=== PATIENT | female | born 1965 | race Caucasian/White ===

== ENCOUNTER 2025-06-19 19:12 | Emergency (ER) | payer OTHER, SELFPAY ==
[2025-06-19 19:12] VITALS: BP 206/115; PULSE 68; RESP 16; O2SAT 96; BMI 36.6
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
--- OUTSIDE RECORDS SUMMARY | 2025-06-19 19:24 | XMS_ITS | Data Portability ---
Author Organization [facility], [facility] Address [address] [place] [address] Assessment No assessment recorded. Plan of Treatment Reminders Order Date Submit Date Provider Last Modified By Organization Details Last Modified Time Details Appointments None recorded. Lab rapid flu (A+B), PCR 2018 019 Not available 9 13:22:16 CBC w/ diff 2018 019 [email or web address] Not available 9 13:22:16 CMP, serum or plasma - cpt 28863 2017 018 [facility], [address] [place], [address], 8 09:51:23 urinalysis , microscopi c 2017 018 [email or web address] Not available 8 12:45:10 TSH, serum or plasma - cpt 29825 2017 018 [facility], [address] [address] [facility] [place], [address], 8 09:51:31 lipid panel, serum 2017 018 [facility], [address] [facility] [place], [address], 8 09:51:19 CBC w/ auto diff - cpt 36090 2017 018 [facility], [address] [facility] [place], [address], 8 09:51:27 pap, LB 2017 018 [email or web address] [facility] [place] [facility], [address] [address] [facility] [place], [address], 8 15:05:59 Referral colonoscop y referral 2018 019 [email or web address] [facility] [address] [place], [address], 9 09:25:22 Procedures None recorded. Surgeries None recorded. Imaging XR, ribs, unilateral , 2 view 2018 019 [facility], [facility], [address], [place], [address], 9 00:14:49 MAMMO, screening, digital, bilateral 2017 018 [email or web address] Not available 8 14:08:42 Medication Orders trazodone 50 mg tablet 2019 020 INTERFACE [facility]1839, [address] [place], [id number], 0 16:18:21 lisinopril 40 mg tablet 2019 020 INTERFACE [facility]72726, [address] [place], [id number], 0 16:18:22 metoprolol tartrate 50 mg tablet 2019 020 INTERFACE [facility]81440, [address] [place], [id number], 0 16:18:24 clonidine HCl 0.1 mg tablet 2019 020 INTERFACE [facility] #94832, [address], [place], [place], [id number], 0 16:18:20 hydroxyzin e HCl 25 mg tablet [address] [facility]43815, [address], [place], [place], [id number], 0 16:05:54 venlafaxin e ER 150 mg capsule,ex tended release 24 hr [address] [facility]35340, [address], [place], [place], [id number], 0 16:05:59 lisinopril 40 mg tablet [address] [facility]14535, [facility] [address], [place], [place], [id number], 0 16:05:56 lisinopril 20 mg-hydroch lorothiazi de 12.5 mg tablet [address] [facility]68094, [address], [place], [place], [id number], 9 10:02:44 clonidine HCl 0.1 mg tablet [address] [facility]61955, [address], [place], [place], [id number], 9 10:03:00 Levaquin 500 mg tablet [address] [facility]30953, [address], [place], [place], [id number], 9 13:59:46 Kenalog 40 mg/mL suspension for injection 2018 019 [email or web address]22011, [address], [place], [place], [id number], 9 13:59:44 Patient TargetsNo targets recorded. Patient Instructions Encounter Date Encounter Id Patient Instructions Last Modified By Organization Details Last Modified Time 07/05/2018 [id number] patient declines colonoscopy scheduled for mammogram [email or web address] Not available 07/05/2018 12:44:41 08/25/2018 [id number] return to clinic if symptoms do not improve with treatment return to ER if symptoms worsen over the weekend Not available 08/25/2018 10:57:57 12/29/2018 [id number] and continue to monitor blood pressure Return to clinic if symptomsof chest discomfort do not resolve [email or web address] Not available 12/29/2018 14:45:24 02/27/2019 [id number] patient will return to clinic in one month for followup on her panic disorder and hypertension. Return to clinic sooner as needed [email or web address] Not available 02/27/2019 10:43:27 02/28/2020 [id number] return to clinic in 2 weeks for followup on her blood pressure. She will monitor her blood pressure closely [email or web address] Not available 02/28/2020 16:18:27 Reason for Referral [facility] Referring Physician: Lashay Grover, Internal Medicine, Encounter Date: 02/27/2019 Results Created Date Observation Date Name Description Value Unit Range Abnormal Flag Note LastModifiedBy Organization Detail LastModifiedTime 06/09/20 18 06/09/2018 CBC w/ diff WBC 7.9 10^3/ uL 4.1-10 .9 Not Available [address], [address], 06/09/2018 09:09:34 06/09/20 18 06/09/2018 CBC w/ diff lym 1.4 10^3/ uL 0.6-4. 1 Not Available [address], [address], 06/09/2018 09:09:34 06/09/20 18 06/09/2018 CBC w/ diff mid 0.6 10^3/ uL 0.0-1. 8 Not Available [address], [address], 06/09/2018 09:09:34 06/09/20 18 06/09/2018 CBC w/ diff gra 5.9 10^3/ uL 2.0-7. 8 Not Available [address], [address], 06/09/2018 09:09:34 06/09/20 18 06/09/2018 CBC w/ diff lym% 18.1 % 10.0-5 8.5 Not Available [address], [address], 06/09/2018 09:09:34 06/09/20 18 06/09/2018 CBC w/ diff mid% 7.5 % 0.1-24 .0 Not Available [address], [address], 06/09/2018 09:09:34 06/09/20 18 06/09/2018 CBC w/ diff gra% 74.4 % 37.0-9 2.0 Not Available [address], [address], 06/09/2018 09:09:34 06/09/20 18 06/09/2018 CBC w/ diff RBC 4.01 10^6/ uL 2.50-6 .30 Not Available [address], [address], 06/09/2018 09:09:34 06/09/20 18 06/09/2018 CBC w/ diff HGB 12.0 g/dL 12.0-1 8.0 Not Available [address], [address], 06/09/2018 09:09:34 06/09/20 18 06/09/2018 CBC w/ diff HCT 36.9 % 33.0-5 1.0 Not Available [address], [address], 06/09/2018 09:09:34 06/09/20 18 06/09/2018 CBC w/ diff MCV 91.9 fL 85.7-9 8.7 Not Available [address], [address], 06/09/2018 09:09:34 06/09/20 18 06/09/2018 CBC w/ diff MCH 29.9 pg 28.5-3 4.5 Not Available [address], [address], 06/09/2018 09:09:34 06/09/20 18 06/09/2018 CBC w/ diff MCHC 32.5 g/dL 31.0-3 6.0 Not Available [address], [address], 06/09/2018 09:09:34 06/09/20 18 06/09/2018 CBC w/ diff RDW 12.4 % 11.5-1 7.0 Not Available [address], [address], 06/09/2018 09:09:34 06/09/20 18 06/09/2018 CBC w/ diff plt 199 10^3/ uL 140-44 0 Not Available [address], [address], 06/09/2018 09:09:34 06/09/20 18 06/09/2018 CBC w/ diff MPV 8.0 fL 0.0-50 .0 Not Available [address] [place], [address], 06/09/2018 09:09:34 07/05/20 18 07/06/2018 lipid panel , serum cholesterol, total 162 mg/dL <200 normal Not Available [facility] [address] [address] [place], [address], 07/06/2018 09:51:19 07/05/20 18 07/06/2018 lipid panel , serum HDL cholesterol 67 mg/dL >50 normal Not Available [facility] [address] [address] [place], [address], 07/06/2018 09:51:19 07/05/2007/06/2018 lipid panel , serum triglyceride s 64 mg/dL <150 normal Not Available [address] [address] [place], [address], 07/06/2018 09:51:19 07/05/20 18 07/06/2018 lipid panel , serum LDL-choleste rol 81 mg/dL _(lily c) normal Refer ence range : <100 Josh able range <100 mg/dL for prima ry preve ntion ; <70 mg/dL for patie nts with CHD or diabe tic patie nts with > or = 2 CHD risk facto rs. LDL-C is now calcu lated using the Mahi n-Hop kins calcu tatyana n, which is a valid ated novel dasia gayle acmiguel than the Fried bari equat ion in the estim ation of LDL-C . Mahi calle SS et al. TAHIRA. 2013; 310(1 9): 2061- 2068 (http ://ed ucati on.Qu estDi yamilos tics. com/f aq/FA Q164) Not Available [facility] [address] [address] [address], [place], [address], 07/06/2018 09:51:19 07/05/2007/06/2018 lipid panel , serum chol/HDLC ratio 2.4 (calc ) <5.0 normal Not Available [facility] [place] [address] [place], [address], 07/06/2018 09:51:19 07/05/20 18 07/06/2018 lipid panel , serum non HDL cholesterol 95 mg/dL _(lily c) <130 normal For patie nts with diabe brandy plus 1 major ASCVD risk facto r, treat ing to a non-H DL-C goal of <100 mg/dL (LDL- C of <70 mg/dL ) is consi dered a thera peuti c optio n. Not Available [address] [address] [address], [place], [address], 07/06/2018 09:51:19 07/05/2007/06/2018 CMP, serum or plasm a glucose 85 mg/dL 65-99 normal Fasti ng refer ence inter alex Not Available [facility] [address] [address] [place], [address], 07/06/2018 09:51:23 07/05/2007/06/2018 CMP, serum or plasm a urea nitrogen (BUN) 16 mg/dL 7-25 normal Not Available [facility] [address] [address] [address], [place], [address], 07/06/2018 09:51:23 07/05/2007/06/2018 CMP, serum or plasm a creatinine 0.80 mg/dL 0.50-1 .05 normal For patie nts >49 years of age, the refer ence limit for Creat inine is appro ximat alfonso 13% highe r for peopl e ident ified as Afric an-Am isaias n. Not Available [facility] [address] [address] [place], [address], 07/06/2018 09:51:23 07/05/2007/06/2018 CMP, serum or plasm a eGFR non-afr. wallisian 85 mL/mi n/1.7 3m2 > or = 60 normal Not Available [facility] [address] [address] [place], [address], 07/06/2018 09:51:23 07/05/20 18 07/06/2018 CMP, serum or plasm a eGFR 99 mL/mi n/1.7 3m2 > or = 60 normal Not Available [address], [address], 07/06/2018 09:51:23 07/05/20 18 07/06/2018 CMP, serum or plasm a BUN/creatini ne ratio NOT APPLIC ABLE (calc ) 6-22 Not Available [address], [address], 07/06/2018 09:51:23 07/05/2007/06/2018 CMP, serum or plasm a sodium 142 mmol/ L 135-14 6 normal Not Available [address], [address], 07/06/2018 09:51:23 07/05/2007/06/2018 CMP, serum or plasm a potassium 4.0 mmol/ L 3.5-5. 3 normal Not Available [address], [address], 07/06/2018 09:51:23 07/05/2007/06/2018 CMP, serum or plasm a chloride 107 mmol/ L 98-110 normal Not Available [address], [address], 07/06/2018 09:51:23 07/05/2007/06/2018 CMP, serum or plasm a carbon dioxide 24 mmol/ L 20-32 normal Not Available [facility] [address], [address], 07/06/2018 09:51:23 07/05/2007/06/2018 CMP, serum or plasm a calcium 9.7 mg/dL 8.6-10 .4 normal Not Available [address], [address], 07/06/2018 09:51:23 07/05/20 18 07/06/2018 CMP, serum or plasm a protein, total 6.4 g/dL 6.1-8. 1 normal Not Available [address], [address], 07/06/2018 09:51:23 07/05/20 18 07/06/2018 CMP, serum or plasm a albumin 4.4 g/dL 3.6-5. 1 normal Not Available [address], [address], 07/06/2018 09:51:23 07/05/20 18 07/06/2018 CMP, serum or plasm a globulin 2.0 g/dL_ (calc ) 1.9-3. 7 normal Not Available [address], [address], 07/06/2018 09:51:23 07/05/20 18 07/06/2018 CMP, serum or plasm a albumin/glob ulin ratio 2.2 (calc ) 1.0-2. 5 normal Not Available [address], [address], 07/06/2018 09:51:23 07/05/20 18 07/06/2018 CMP, serum or plasm a bilirubin, total 0.7 mg/dL 0.2-1. 2 normal Not Available [address], [address], 07/06/2018 09:51:23 07/05/20 18 07/06/2018 CMP, serum or plasm a alkaline phosphatase 106 U/L 33-130 normal Not Available [facility] [address], [address], 07/06/2018 09:51:23 07/05/20 18 07/06/2018 CMP, serum or plasm a AST 23 U/L 10-35 normal Not Available [address] [place], [address], 07/06/2018 09:51:23 07/05/20 18 07/06/2018 CMP, serum or plasm a ALT 20 U/L 6-29 normal Not Available [address], [address], 07/06/2018 09:51:23 07/05/20 18 07/06/2018 CBC w/ auto diff white blood cell count 4.7 thous and/u L 3.8-10 .8 normal Not Available [address], [address], 07/06/2018 09:51:27 07/05/20 18 07/06/2018 CBC w/ auto diff red blood cell count 4.11 jackson on/uL 3.80-5 .10 normal Not Available [address], [address], 07/06/2018 09:51:27 07/05/20 18 07/06/2018 CBC w/ auto diff hemoglobin 12.3 g/dL 11.7-1 5.5 normal Not Available [address], [address], 07/06/2018 09:51:27 07/05/20 18 07/06/2018 CBC w/ auto diff hematocrit 36.5 % 35.0-4 5.0 normal Not Available [address], [address], 07/06/2018 09:51:27 07/05/20 18 07/06/2018 CBC w/ auto diff MCV 88.8 fL 80.0-1 00.0 normal Not Available [address], [address], 07/06/2018 09:51:27 07/05/20 18 07/06/2018 CBC w/ auto diff MCH 29.9 pg 27.0-3 3.0 normal Not Available [address], [address], 07/06/2018 09:51:27 07/05/20 18 07/06/2018 CBC w/ auto diff MCHC 33.7 g/dL 32.0-3 6.0 normal Not Available [address], [address], 07/06/2018 09:51:27 07/05/20 18 07/06/2018 CBC w/ auto diff RDW 12.8 % 11.0-1 5.0 normal Not Available [address], [address], 07/06/2018 09:51:27 07/05/20 18 07/06/2018 CBC w/ auto diff platelet count 173 thous and/u L 140-40 0 normal Not Available [address], [address], 07/06/2018 09:51:27 07/05/20 18 07/06/2018 CBC w/ auto diff MPV 11.1 fL 7.5-12 .5 normal Not Available [address], [address], 07/06/2018 09:51:27 07/05/20 18 07/06/2018 CBC w/ auto diff absolute neutrophils 2881 cells /uL 1500-7 800 normal Not Available [address], [address], 07/06/2018 09:51:27 07/05/20 18 07/06/2018 CBC w/ auto diff absolute lymphocytes 1090 cells /uL 850-39 00 normal Not Available [address], [address], 07/06/2018 09:51:27 07/05/20 18 07/06/2018 CBC w/ auto diff absolute monocytes 432 cells /uL 200-95 0 normal Not Available [address] [place], [address], 07/06/2018 09:51:27 07/05/20 18 07/06/2018 CBC w/ auto diff absolute eosinophils 254 cells /uL 15-500 normal Not Available [address], [address], 07/06/2018 09:51:27 07/05/20 18 07/06/2018 CBC w/ auto diff absolute basophils 42 cells /uL 0-200 normal Not Available [address] [address] [place], [address], 07/06/2018 09:51:27 07/05/2007/06/2018 CBC w/ auto diff neutrophils 61.3 % normal Not Available [address], [address], 07/06/2018 09:51:27 07/05/2007/06/2018 CBC w/ auto diff lymphocytes 23.2 % normal Not Available [address], [address], 07/06/2018 09:51:27 07/05/2007/06/2018 CBC w/ auto diff monocytes 9.2 % normal Not Available [address], [address], 07/06/2018 09:51:27 07/05/2007/06/2018 CBC w/ auto diff eosinophils 5.4 % normal Not Available [address] [address] [place], [address], 07/06/2018 09:51:27 07/05/2007/06/2018 CBC w/ auto diff basophils 0.9 % normal Not Available [address] [place], [address], 07/06/2018 09:51:27 07/05/20 18 07/06/2018 TSH, serum or plasm a TSH 5.86 mIU/L high Refer ence Range > or = 20 Years 0.40- 4.50 Pregn que Range s First trime ster 0.26- 2.66 Secon d trime ster 0.55- 2.73 Third trime ster 0.43- 2.91 Not Available [address] [address] [place], [address], 07/06/2018 09:51:31 07/05/20 18 07/13/2018 pap, LB comment This order for age-b ased cervi lily cance r and STI scree liya follo ws ACOG guide lines (PB 168, 140, FAQ07 1). See indiv idual assay s for perfo rming site locat ion. Not Available [address] [address] [place], [address], 07/13/2018 09:18:19 07/05/20 18 07/13/2018 pap, IG + HPV mRNA E6/E7 + refle x HPV (16+1 8+45) clinical information: H/O DYSPLA ROGERS OF CX normal Not Available [address] [address] [place], [address], 07/13/2018 09:18:23 07/05/20 18 07/13/2018 pap, IG + HPV mRNA E6/E7 + refle x HPV (16+1 8+45) LMP: INFORM ATION NOT PROVID ED normal Not Available [address] [address] [place], [address], 07/13/2018 09:18:23 07/05/20 18 07/13/2018 pap, IG + HPV mRNA E6/E7 + refle x HPV (16+1 8+45) prev. Pap: INFORM ATION NOT PROVID ED normal Not Available [address] [address] [place], [address], 07/13/2018 09:18:23 07/05/20 18 07/13/2018 pap, IG + HPV mRNA E6/E7 + refle x HPV (16+1 8+45) prev. BX: INFORM ATION NOT PROVID ED normal Not Available [address] [address] [place], [address], 07/13/2018 09:18:23 07/05/20 18 07/13/2018 pap, IG + HPV mRNA E6/E7 + refle x HPV (16+1 8+45) source: Cervix normal Not Available [address] [address] [place], [address], 07/13/2018 09:18:23 07/05/20 18 07/13/2018 pap, IG + HPV mRNA E6/E7 + refle x HPV (16+1 8+45) statement of adequacy: Satisf actory for evalua tion. Endoce rvical /trans format ion zone compon ent presen t. Age and/or menstr ual status not provid ed normal Not Available [address] [address] [place], [address], 07/13/2018 09:18:23 07/05/20 18 07/13/2018 pap, IG + HPV mRNA E6/E7 + refle x HPV (16+1 8+45) general categorizati on: EPITHE LIAL CELL ABNORM ALITY abnormal Not Available [address] [address] [place], [address], 07/13/2018 09:18:23 07/05/20 18 07/13/2018 pap, IG + HPV mRNA E6/E7 + refle x HPV (16+1 8+45) interpretati on/result: Atypic al [place] us Cells of Undete rmined Signif icance (ASC-U S) abnormal Not Available [address] [address] [place], [address], 07/13/2018 09:18:23 07/05/20 18 07/13/2018 pap, IG + HPV mRNA E6/E7 + refle x HPV (16+1 8+45) comment: This Pap test has been evalua desean with comput er assist ed techno logy. Sugges t clinic al correl ation and follow -up as clinic alexandra approp riate normal Not Available [address] [address] [place], [address], 07/13/2018 09:18:23 07/05/20 18 07/13/2018 pap, IG + HPV mRNA E6/E7 + refle x HPV (16+1 8+45) cytotechnolo gist: BEF, CT(ASC P) normal Not Available [facility] [address] [address] [address], [place], [address], 07/13/2018 09:18:23 07/05/20 18 07/13/2018 pap, IG + HPV mRNA E6/E7 + refle x HPV (16+1 8+45) pathologist: Estevan Salomon M.D., Board Certif ied in Anatom ic Pathol ogy and Cytopa tholog y. Phone: ([facility]) normal Not Available [address] [address], [place], [address], 07/13/2018 09:18:23 07/05/20 18 07/13/2018 pap, IG + HPV mRNA E6/E7 + refle x HPV (16+1 8+45) comment EXPLA NATOR Y NOTE: The Pap is a scree liya test for cervi lily cance r. It is not a diagn ostic test and is subje ct to false negat quintin and false posit quintin resul ts. It is most relia ble when a satis facto ry sampl e, regul igor obtai yuki, is submi tted with relev ant clini lily findi ngs and histo ry, and when the Pap resul t is evalu ated along with histo shantelle and curre nt clini lily infor matio n. Not Available [address] [address] [place], [address], 07/13/2018 09:18:23 07/05/20 18 07/13/2018 pap, IG + HPV mRNA E6/E7 + refle x HPV (16+1 8+45) HPV MRNA E6/E7 Detect ed not detect ed abnormal This test was perfo rmed using the APTIM A HPV Assay ([employer] . This assay detec ts E6/E7 viral messe nger RNA (mRNA ) from 14 high- risk HPV types (16,1 8,31, 33,35 ,39,4 5,51, 52,56 ,58,5 9,66, 68). The janet tical perfo rmanc e leeanna cteri stics of this assay have been deter mined by [facility]. The modif icati ons have not been clear ed or appro nga by the FDA. This assay has been valid ated pursu ant to the CLIA regul ation s and is used for clini lily purpo ses. Not Available [facility] [address] [place], [address], 07/13/2018 09:18:23 07/05/20 18 07/05/2018 urina lysis , micro scopi c Color straw Not Available [address], [address], 07/05/2018 11:06:57 07/05/20 18 07/05/2018 urina lysis , micro scopi c Clarity hazy Not Available [address], [address], 07/05/2018 11:06:57 07/05/20 18 07/05/2018 urina lysis , micro scopi c Urine Glucose - Not Available [address], [address], 07/05/2018 11:06:57 07/05/20 18 07/05/2018 urina lysis , micro scopi c Urine Bilirubin - Not Available [address], [address], 07/05/2018 11:06:57 07/05/20 18 07/05/2018 urina lysis , micro scopi c Urine Ketones - Not Available [address], [address], 07/05/2018 11:06:57 07/05/20 18 07/05/2018 urina lysis , micro scopi c Specific [place] >1.030 Not Available [address], [address], 07/05/2018 11:06:57 07/05/20 18 07/05/2018 urina lysis , micro scopi c Urine Blood - Not Available [address], [address], 07/05/2018 11:06:57 07/05/20 18 07/05/2018 urina lysis , micro scopi c Urine PH 5.0 Not Available [address], [address], 07/05/2018 11:06:57 07/05/20 18 07/05/2018 urina lysis , micro scopi c Protein - Not Available [address], [address], 07/05/2018 11:06:57 07/05/20 18 07/05/2018 urina lysis , micro scopi c Urobilinogen 0.2 Not Available [address], [address], 07/05/2018 11:06:57 07/05/20 18 07/05/2018 urina lysis , micro scopi c Nitrate - Not Available [address], [address], 07/05/2018 11:06:57 07/05/20 18 07/05/2018 urina lysis , micro scopi c Leukocyte Esterase 1+ Not Available [address], [address], 07/05/2018 11:06:57 07/05/20 18 07/05/2018 urina lysis , micro scopi c Urine WBC 8-10 Not Available [address], [address], 07/05/2018 11:06:57 07/05/20 18 07/05/2018 urina lysis , micro scopi c Urine RBC - Not Available [address], [address], 07/05/2018 11:06:57 07/05/20 18 07/05/2018 urina lysis , micro scopi c Epithelium 7-9 Not Available [address], [address], 07/05/2018 11:06:57 07/05/20 18 07/05/2018 urina lysis , micro scopi c Urine Bacteria trace Not Available [address], [address], 07/05/2018 11:06:57 08/25/19 19 08/25/2018 CBC w/ diff WBC 6.5 10^3/ uL 4.1-10 .9 Not Available [address], [address], 08/25/2018 10:53:11 08/25/19 19 08/25/2018 CBC w/ diff lym 1.4 10^3/ uL 0.6-4. 1 Not Available [address], [address], 08/25/2018 10:53:11 08/25/19 19 08/25/2018 CBC w/ diff mid 0.7 10^3/ uL 0.0-1. 8 Not Available [address], [address], 08/25/2018 10:53:11 08/25/19 19 08/25/2018 CBC w/ diff gra 4.4 10^3/ uL 2.0-7. 8 Not Available [address], [address], 08/25/2018 10:53:11 08/25/19 19 08/25/2018 CBC w/ diff lym% 20.8 % 10.0-5 8.5 Not Available [address], [address], 08/25/2018 10:53:11 08/25/19 19 08/25/2018 CBC w/ diff mid% 11.3 % 0.1-24 .0 Not Available [address], [address], 08/25/2018 10:53:11 08/25/19 19 08/25/2018 CBC w/ diff gra% 67.9 % 37.0-9 2.0 Not Available [address], [address], 08/25/2018 10:53:11 08/25/19 19 08/25/2018 CBC w/ diff RBC 4.34 10^6/ uL 2.50-6 .30 Not Available [address], [address], 08/25/2018 10:53:11 08/25/19 19 08/25/2018 CBC w/ diff HGB 12.8 g/dL 12.0-1 8.0 Not Available [address], [address], 08/25/2018 10:53:11 08/25/19 19 08/25/2018 CBC w/ diff HCT 39.9 % 33.0-5 1.0 Not Available [address], [address], 08/25/2018 10:53:11 08/25/1908/25/2018 CBC w/ diff MCV 92.0 fL 85.7-9 8.7 Not Available [address], [address], 08/25/2018 10:53:11 08/25/19 19 08/25/2018 CBC w/ diff MCH 29.5 pg 28.5-3 4.5 Not Available [address], [address], 08/25/2018 10:53:11 08/25/1908/25/2018 CBC w/ diff MCHC 32.1 g/dL 31.0-3 6.0 Not Available [address], [address], 08/25/2018 10:53:11 08/25/1908/25/2018 CBC w/ diff RDW 13.0 % 11.5-1 7.0 Not Available [address], [address], 08/25/2018 10:53:11 08/25/1908/25/2018 CBC w/ diff plt 184 10^3/ uL 140-44 0 Not Available [address], [address], 08/25/2018 10:53:11 08/25/1908/25/2018 CBC w/ diff MPV 7.5 fL 0.0-50 .0 Not Available [address], [address], 08/25/2018 10:53:11 08/25/1908/25/2018 rapid flu (A+B) , PCR FLU A negati ve Not Available [address], [address], 08/25/2018 10:25:20 08/25/1908/25/2018 rapid flu (A+B) , PCR FLU B negati ve Not Available [address], [address], 08/25/2018 10:25:20 01/02/2012/29/2018 XR, ribs, unila teral , 2 view No observ ation record ed. [email or web address] Not Available 01/02 10:28:21 Result Notes None recorded. Problems Name Problem SNOMED Code Status Onset Date Resolution Date Notes Provider Name and Address Organization Details Recorded Time Cerebrovasc ular accident 923360087 Completed 201711/07/2017 Mayelin montemayor [facility] 8 16:52:53 Cerebrovasc ular accident 875858015 [facility]07/[facility] Depressive disorder 86681607 Completed 201702/27/2019 Lashay montemayor [facility] 9 10:43:10 Essential hypertensio n 54291279 Active 2017 Lashay montemayor [facility] 8 15:24:34 Pain of shoulder region 52560238 Completed 201702/27/2019 Ania montemayor [facility] 9 10:03:14 History of dysplasia of cervix 605329069 Active 2017 Mayelin montemayor [facility] 8 16:52:29 History of cerebrovasc ular accident with residual deficit 474820565 Active 2017 Mayelin montemayor [facility] 8 16:52:30 Fibromyalgi a 007705940 Active 2018 Lashay montemayor [facility] 9 10:42:50 Panic disorder 328621645 Active 2018 Lashay montemayor [facility] 9 10:42:52 Notes:hx of cva 04/2016 Problem Notes None recorded. Procedures Surgical History Date Name Laterality Status Provider Name and Address Organization Details Recorded Time 6 Most [facility]25 6 [facility] 11:37:37 Imaging Results None recorded. Procedure Notes None recorded. Medical Equipment None Reported. Allergies No known drug allergies Medications Name Sig Start Date Stop Date Status Note LastModified by Organization Details LastModified Time cyclobenzap rine 10 mg tablet 02/27 completed Not Available Not Available Not Available clonidine HCl 0.1 mg tablet Take 1 tablet twice a day by oral route. active Not Available Not Available No t Available trazodone 50 mg tablet Take 1 tablet every day by oral route at bedtime. active Not Available Not Available No t Available lisinopril 20 mg-hydrochl orothiazide 12.5 mg tablet Take 1 tablet twice a day by oral route. 02/27 completed Not Available Not Available Not Available azithromyci n 250 mg tablet TAKE 2 TABLETS (500 MG) BY ORAL ROUTE ONCE DAILY FOR 1 DAY THEN 1 TABLET (250 MG) BY ORAL ROUTE ONCE DAILY FOR 4 DAYS 07/05 completed Not Available Not Available Not Available hydrocodone 5 mg-acetamin ophen 325 mg tablet 06/09 completed Not Available Not Available Not Available meloxicam 15 mg tablet 06/09 completed Not Available Not Available Not Available Remeron 15 mg tablet Take 1 tablet every day by oral route at bedtime. 06/09 completed Not Available Not Available Not Available prednisone 20 mg tablet Take 1 tablet every day by oral route. 02/27 completed Not Available Not Available Not Available fluoxetine 10 mg tablet 06/09 completed Not Available Not Available Not Available lindane 1 % shampoo 06/09 completed Not Available Not Available Not Available permethrin 5 % topical cream 06/09 completed Not Available Not Available Not Available venlafaxine ER 150 mg capsule,ext ended release 24 hr Take 1 capsule every day by oral route. 02/27 completed Not Available Not Available Not Available tramadol 50 mg tablet Take 1 tablet 3 times a day by oral route as needed. 06/09 completed Not Available Not Available Not Available triamcinolo ne acetonide 0.1 % topical cream APPLY A THIN LAYER TO THE AFFECTED AREA(S) BY TOPICAL ROUTE 2 TIMES PER DAY 02/27 completed Not Available Not Available Not Available Kenalog 40 mg/mL suspension for injection Take 1 mL by injection route. 12/29 completed Not Available Not Available Not Available baclofen 10 mg tablet Take 1 tablet 3 times a day by oral route as needed. 06/09 completed Not Available Not Available Not Available levothyroxi ne 50 mcg tablet Take 1 tablet every day by oral route. 02/27 completed Not Available Not Available Not Available promethazin e 25 mg tablet 06/09 completed Not Available Not Available Not Available metoprolol tartrate 50 mg tablet Take 1 tablet twice a day by oral route. active Not Available Not Available No t Available hydroxyzine HCl 25 mg tablet Take 1 tablet 3 times a day by oral route as needed. 02/27 completed Not Available Not Available Not Available diclofenac sodium 50 mg tablet,shonda yed release 06/09 completed Not Available Not Available Not Available levofloxaci n 500 mg tablet Take 1 tablet every 24 hours by oral route. 12/29 completed Not Available Not Available Not Available levofloxaci n 750 mg tablet 06/09 completed Not Available Not Available Not Available lisinopril 40 mg tablet Take 1 tablet every day by oral route. active Not Available Not Available No t Available naproxen 500 mg tablet 02/27 completed Not Available Not Available Not Available Vitals Date Recorded Body height Heart rate Respiratory rate Body temperature Body mass index (BMI) Body weight Systolic And Diastolic Provider Name and Address Organization Details Last Updated DateTime 9 165.1 cm 88 /min 16 /min 99.2 [degF] 36.9 kg/m2 936899. 51 g 130/88 mm[Hg] Ania MADDEN [facility] 9 10:16:18 Date Recorded Body height Heart rate Respiratory rate Body temperature Body mass index (BMI) Body weight Systolic And Diastolic Provider Name and Address Organization Details Last Updated DateTime 9 165.1 cm 88 /min 16 /min 98.6 [degF] 37.8 kg/m2 077772. 47 g 150/100 mm[Hg] [facility] 9 13:59:12 Date Recorded Body height Heart rate Respiratory rate Body temperature Body mass index (BMI) Body weight Systolic And Diastolic Provider Name and Address Organization Details Last Updated DateTime 9 165.1 cm 78 /min 16 /min 98.5 [degF] 38.3 kg/m2 640596. 25 g 148/100 mm[Hg] [facility] 9 10:01:54 Date Recorded Heart rate Respiratory rate Body temperature Body weight Body mass index (BMI) Body height Systolic And Diastolic Provider Name and Address Organization Details Last Updated DateTime 0 88 /min 14 /min 98.6 [degF] 573142. 06 g 37.9 kg/m2 165.1 cm 180/110 mm[Hg] [facility] 0 16:05:23 Date Recorded Body height Heart rate Respiratory rate Body temperature Body mass index (BMI) Body weight Systolic And Diastolic Provider Name and Address Organization Details Last Updated DateTime 8 165.1 cm 64 /min 16 /min 98 [degF] 36.6 kg/m2 03225.3 2 g 114/80 mm[Hg] Flakita Malcolm [facility] 8 11:20:23 Social History Question Answer Notes LastModified by Organizat ion Details LastModified Time Tobacco Smoking Status Never Smoker Flakita montemayor [facility] 11/07/2017 14:43:58 How Often Do You Need To Have Someone Help You When You Read Instructions, Pamphlets, Or Other Written Material From Your Doctor Or Pharmacy? 1-Never [email or web address] Information not available 11/07/2017 What Was The Date Of Your Most Recent Tobacco Screening? 08/25/2018 Information n ot available 02/14/2019 How Much Tobacco Do You Smoke? No [email or web address] Information not available 02/28/2020 Sex: Unknown Functional Status None recorded. Mental Status None recorded. Family History Nothing Reported. Medical History No medical history recorded. Gynecological History Statement/Question Response Date of Last Pap Smear Date of Last Mammogram 10/15/2015 Most Recent Mammogram 10/15/2015 LMP Unknown Obstetrics History GPAL:G 0 P 0 0 0 0 Immunizations Vaccine Type Date Status Note Provider Nam e and Address Organization Details Recorded Time Influenza, MDCK, quadrivalent, PF 06/09/2018 completed Not Available [facility] 0 02:57:20 Past Encounters Encounter ID Performer Location Encounter Start Date Encounter Closed Date Diagnosis/Indication Diagnosis SNOMED-CT Code Diagnosis ICD10 Code Diagnosis IMO Codes Diagnosis Note [id number] Lashay Grover MD [address] [address] 11/07/2017 13:54:22 11/07/2017 16:52:13 Depressive disorder 55929615 F32.9 Pain of oulder region 74390696 M25.511 Essential hypertension 40423663 I10 History of cerebrovascular accident with residual deficit 620586191 I69.30 left sided weakness History of dysplasia of cervix 853186245 Z87.839 [id number] Lashay Grover MD [address] [address] 01/23/2018 16:17:37 01/23/2018 20:56:16 Mechanical low back pain 850168920 M54.5 Osteoarthritis 199287623 M15.0 Degenerati on of lumbar intervertebral disc 41570892 M51.36 Osteoporosis 56837001 M8 1.0 [id number] Lashay Grover MD [address] [address] 06/09/2018 08:51:00 06/09/2018 09:51:43 Fatigue 65844915 R53.83 schedule appointmen t for evaluation for sleep apnea Essential hypertension 81832026 I10 continue clonidine Acute sinusitis 88507568 J01.90 Sleep apnea 83649858 G47 .30 Influenza vaccine needed 0260652472 106 Z23 [id number] Lashay Grover MD [address] [address] 07/05/2018 10:44:32 07/05/2018 14:08:42 Adult health examination 859668888 Z00.00 Z13.220 Screening for malignant neoplasm of breast 658388344 Z12.31 Screening for malignant neoplasm of cervix 390135444 Z12.4 Body mass index 30+ - obesity 239744263 Z68.36 Gynecologi c examination 41182096 Z01.411 Hypothyroidism 48334215 E03.9 HPV - [facility] n papillomavirus test positive 086161582 R87.619 Atypical s quamous cells of undetermined significance on cervical Papanicolaou smear 214243637 R87.610 Abnormal f inding on evaluation procedure 817551102 Z00.01 [id number] Lashay Grover MD [address] [address] 08/25/2018 09:59:12 08/25/2018 11:21:15 Fever 087407535 R50.9 Acute bronchitis 1770020 2 J20.9 Reactive a irway disease 0249517245 06 J45.909 kenalog 40 mg im [id number] Lashay Grover MD [address] [address] 12/29/2018 13:45:59 12/29/2018 15:00:50 Essential hypertension 64264716 I10 continue clonidine aand lisinopril with hydrochlor othiazide Rib pain 775919336 R07.8 1 no evidence of fractureco ntinue Naprosyn and Flexeril as needed Fall on sa al level from slipping, tripping or stumbling 442660692 W01.0XXD [id number] Lashay Grover MD [address] [address] 02/27/2019 09:46:27 02/27/2019 10:37:06 Screening for malignant neoplasm of colon 700050590 Z12.11 Essential hypertension 73460516 I10 the patient has discontinu ed all medication s Panic disorder 158797429 F41.0 Fibromyalgia 270156293 M 79.7 [id number] Lashay Grover MD [address] [address] 02/28/2020 15:55:29 02/28/2020 17:06:54 Essential hypertension 68494491 I10 the patient has discontinu ed all medication sneeds to be restarted Insomnia 027692939 G47.0 0 History of cerebrovascular accident 814180816 Z86.73 Health Concerns Section Related Observation LastModified by Organization Detai ls LastModified Time None Recorded Concern Status LastModified by Organization Details LastModified Time None Recorded Advance Directives Directive None Recorded Payers Insurance Date Sequence Insurance Name Policy Number Policy Solano Covered Member ID Solano Member ID Guarantor Name 03/16/2020 1 BRADLEY MACHADO - [facility] (O[facility] Rosa Lucero [id number] Rosa Lucero Notes Date Note Type Note Provider Name and Address Organization Details Recorded Time 07/05/2018 text/html Annual WellnessReported by PatientSocial/Behavior al HistoryFor diet and nutrition, patient reportshealthy diet. For fracture risk, patient reportsno history of fractures,no recent explained fracture, andno sudden unexplained fractures. For physical activity, patient reportsdiscussed exercise habits. For additional lifestyle factors, patient reportsno tobacco useandno alcohol intake.Mental Status:For depression risk, patient reportsnever feels sad, empty, or tearful,no loss of interest in activities,no significant changes in weight,no sleep disturbances or insomnia,no agitation,no loss of energy,no feelings of worthlessness or guilt,no thoughts of suicide,no history of depression, andno history of mood disorders.Functional AbilityFor hearing, patient reportsno loss of hearing. For vision, patient reportsno vision problems.ROS as noted in the HPI Lashay montemayor [facility] 07/24/2018 13:14:14 08/25/2018 text/html ROS as noted in the HPI patient comes in with a 2 to three-day history of head congestion, chest congestion, fever with chills and body aches. She did have an influenza vaccination Lashay montemayor [facility] 09/04/2018 16:23:07 12/29/2018 text/html ROS as noted in the HPI patient comes in today complaining of some right-sided rib pain. She also needs refill on her blood pressure medicines MARYANNE Mcdowell [facility] 01/01/2019 15:47:22 02/27/2019 text/html ROS as noted in the HPI patient comes in today to discuss several different issues. She told me she is no longer taking any medication at all. She is having difficulty with stress and anxiety and is here to discuss treatment for the Lashay Groverpablo montemayor [facility] 03/03/2019 17:54:16 02/28/2020 text/html ROS as noted in the HPI patient comes in today for followup on her hypertension Lashay Groverpablo montemayor [facility] 03/03/2020 16:11:37 OBGyn Episode No OBEpisode recorded.
[2025-06-19] MEDS: hyDRALAzine 20 mg/mL INJ 1 mL 10 MG IVP (20:41)
[2025-06-19 20:46] VITALS: BP 160/110
[2025-06-19 20:55] VITALS: BP 150/106; PULSE 72; O2SAT 96
[2025-06-19 21:27] VITALS: BP 147/93; PULSE 76; O2SAT 96
== END 2025-06-19 21:20 | disposition home or self-care (01) ==
PROVIDERS: Emergency Provider Physician Assistant
DX: S13.9XXA Sprain of joints and ligaments of unspecified parts of neck, initial encounter (principal); S33.5XXA Sprain of ligaments of lumbar spine, initial encounter; I10 Essential (primary) hypertension; V49.50XA Passenger injured in collision with unspecified motor vehicles in traffic accident, initial encounter
CPT/HCPCS: 72125; 72131; 96374; 96375; 99284; J0360; J1885